=== PATIENT | male | born 1980 | race Two or more races ===

== ENCOUNTER 2017-03-23 00:41 | Emergency (ER) | payer MEDICAID ==
[~2017-03-23] VITALS: Ht 180.3 cm; Wt 115.0 kg
[2017-03-23 00:45] VITALS: BP 120/87
== END 2017-03-23 04:55 | disposition home or self-care (01) ==
LOC: ED 04:49
DX: F10.121 Alcohol abuse with intoxication delirium (principal); G93.41 Metabolic encephalopathy
CPT/HCPCS: 36415; 70450; 80307; G0479

== ENCOUNTER 2017-05-20 22:00 | Emergency (ER) | payer MEDICAID ==
[~2017-05-20] VITALS: Ht 180.3 cm; Wt 93.0 kg
[2017-05-20 22:21] VITALS: BP 134/93
== END 2017-05-21 01:13 | disposition home or self-care (01) ==
LOC: ED 23:59
DX: S54.22XA Injury of radial nerve at forearm level, left arm, initial encounter (principal); X58.XXXA Exposure to other specified factors, initial encounter; Y93.89 Activity, other specified; Y92.89 Other specified places as the place of occurrence of the external cause; Y99.8 Other external cause status
CPT/HCPCS: 93005; 99284

== ENCOUNTER 2017-07-19 06:20 | Emergency (ER) | payer MEDICAID ==
[~2017-07-19] VITALS: Ht 175.3 cm; Wt 80.0 kg
[2017-07-19] MEDS ORDERED: THIAMINE 100MG TABLET PO ONE (06:30)
[2017-07-19] MEDS ORDERED: THIAMINE 100MG TABLET ONE (06:39)
[2017-07-19 08:17] VITALS: BP 125/66
== END 2017-07-19 10:47 | disposition home or self-care (01) ==
LOC: ED 10:45
DX: F10.120 Alcohol abuse with intoxication, uncomplicated (principal); F17.200 Nicotine dependence, unspecified, uncomplicated; F15.10 Other stimulant abuse, uncomplicated; R41.82 Altered mental status, unspecified; R40.1 Stupor; Y90.9 Presence of alcohol in blood, level not specified
CPT/HCPCS: 99283

== ENCOUNTER 2018-07-19 18:40 | Emergency (ER) | payer MEDICAID ==
[~2018-07-19] VITALS: Ht 180.3 cm; Wt 90.0 kg
--- NOTE | 2018-07-19 18:49 | NUR ---
SEE TRIAGE. PT ANSWERS QUESTIONS, SLURRED SPEECH. PT WITH SUDDEN ANGRY OUTBURSTS/YELLING USING NAMES OF PEOPLE NOT IN ROOM. BED IN LOW POSITION, SR UP X 2, CALL LIGHT WITHIN REACH.
--- NOTE | 2018-07-19 19:23 | NUR ---
REPEAT VS REQUESTED BY PA
[2018-07-19] MEDS ORDERED: ZIPRASIDONE 20 MG INJ IM ONE ×3 (19:30→19:33)
--- NOTE | 2018-07-19 19:54 | NUR ---
REGLA GIVEN PER ERP ORDER. HR 130S, PT STATING HE'S GOING TO LEAVE. PA AND ERP NOTIFIED.
--- NOTE | 2018-07-19 20:40 | NUR ---
PT SLEEPING SOUNDLY. PULSE OX REPLACED AFTER GEODON GIVEN (PT HAD REMOVED TWICE). RA SAT 88%, BLOW BY OXYEN AT 5 LITERS PLACED BY MOUTH VIA NC WITH SAT IMPROVEMENT TO 94%. VS UPDATED IN COMPUTER.
[2018-07-19] MEDS ORDERED: SODIUM CHLORIDE FLUSH 10ML SYR IVF ONE (21:30)
[2018-07-19] MEDS ORDERED: SODIUM CHLORIDE 0.9% 1,000ML IVBOLUS ONE (21:30)
[2018-07-19] MEDS ORDERED: THIAMINE 100MG TABLET PO ONE (21:30)
[2018-07-19 21:42] LABS: BASOPHILS # (AUTO) 0.02 x10^3/uL (0-0.1); BASOPHILS % (AUTO) 0 % (0-1); EOSINOPHILS # (AUTO) 0.01 x10^3/uL (0-0.4); EOSINOPHILS % (AUTO) 0 % (1-7); LYMPHOCYTES # (AUTO) 1.13 x10^3/uL (1-3.4); LYMPHOCYTES % (AUTO) 13 % (22-44); MD NO; MEAN CORPUSCULAR HGB CONC 33.7 g/dL (33.2-36.2); MEAN CORPUSCULAR VOLUME 91.9 fL (81-97); MONOCYTES # (AUTO) 0.51 x10^3/uL (0.2-0.8); MONOCYTES % (AUTO) 6 % (2-9); NEUTROPHILS % (AUTO) 81 % (42-75); PLATELET COUNT 358 x10^3/uL (130-400); RED BLOOD COUNT 4.77 x10^6/uL (4.38-5.82); RED CELL DISTRIBUTION WIDTH 14.8 % (9.4-14.8)
[2018-07-19 21:53] LABS: ALANINE AMINOTRANSFERASE 30 U/L (12-78); ALBUMIN 3.3 g/dL (3.4-5.0); ANION GAP 12 mmol/L (5-15); CALCIUM 8.1 mg/dL (8.5-10.1); CHLORIDE 102 mmol/L (98-107); CREATININE 0.85 mg/dL (0.7-1.3)
[2018-07-19 21:56] LABS: ALKALINE PHOSPHATASE 91 U/L (45-117); BILIRUBIN,TOTAL 1.1 mg/dL (0.2-1.0); TOTAL PROTEIN 6.9 g/dL (6.4-8.2)
[2018-07-19 21:57] LABS: SALICYLATE LEVEL < 1.7 mg/dL (2.8-20.0)
[2018-07-19 21:58] LABS: ACETAMINOPHEN < 2 mcg/mL (10-30)
--- NOTE | 2018-07-19 22:17 | NUR ---
HR DECREASED TO 114, ERP NOTIFIED. HOLD ON IVF, PT NOW MTF. PT CONTINUES TO SLEEP DEEPLY, OCCASIONALLY REPOSITIONING IN BED.
--- NOTE | 2018-07-19 23:08 | NUR ---
REPORT TO JIM STEPHENS, TRANSFER OF CARE AT THIS TIME.
--- NOTE | 2018-07-20 02:37 | NUR ---
PT SLEEPING ON GUBRANDON ZENDEJAS AT THIS TIME.
--- NOTE | 2018-07-20 04:29 | NUR ---
PT D/C WITH D/C SUMMARY. PT DENIES ANY OTHER NEEDS PERTAINING TO THIS VISIT. PT VSS UPON D/C. PT PROVIDED WITH CRACKERS AND PEANUT BUTTER PER REQUEST. PT STATES HE IS GOING TO WALK HOME. PT AMBULATES TO REGISTRATION DESK WITH STEADY GAIT FOR D/C HOME.
[2018-07-20 04:30] VITALS: BP 121/70
== END 2018-07-20 04:34 | disposition home or self-care (01) ==
LOC: ED 19:06
DX: F10.229 Alcohol dependence with intoxication, unspecified (principal); F15.10 Other stimulant abuse, uncomplicated; F17.210 Nicotine dependence, cigarettes, uncomplicated
CPT/HCPCS: 36415; 80053; 80307; 80329; 85025; 96372; 99283; J3486; G0480

== ENCOUNTER 2019-02-09 10:57 | Emergency (ER) | payer MEDICAID ==
[~2019-02-09] VITALS: Ht 177.8 cm; Wt 82.0 kg
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
[2019-02-09] MEDS ORDERED: THIAMINE 100 MG/ML, 2ML ONE (11:14)
[2019-02-09] MEDS ORDERED: THIAMINE 100 MG/ML, 2ML IM ONE (11:30)
--- NOTE | 2019-02-09 12:06 | NUR ---
PATIENT RESTING IN BED
--- NOTE | 2019-02-09 13:15 | NUR ---
PATIENT RESTING IN BED.
--- NOTE | 2019-02-09 14:37 | NUR ---
PT IN BED AT THIS TIME. RESPS EVEN AND UNLABORED. EQUAL CHEST RISE AND FALL NOTED. CALL LIGHT IN REACH.
--- NOTE | 2019-02-09 16:50 | NUR ---
JAE GORE UPDATED ON PT STATUS
--- NOTE | 2019-02-09 18:12 | NUR ---
PATIENT RESTING IN BED
--- NOTE | 2019-02-09 18:45 | NUR ---
REPORT TO JORDAN STEPHENS
--- NOTE | 2019-02-09 18:55 | NUR ---
RECIEVED REPORT FROM FRANCES
[2019-02-09 18:57] VITALS: BP 129/82
--- NOTE | 2019-02-09 19:58 | NUR ---
PT ESCORTED BY SECURITY. DC'D HOME.
== END 2019-02-09 20:05 | disposition home or self-care (01) ==
LOC: ED 19:59
DX: F10.120 Alcohol abuse with intoxication, uncomplicated (principal); R41.82 Altered mental status, unspecified; Y90.9 Presence of alcohol in blood, level not specified
CPT/HCPCS: 96372; 99283; J3411

== ENCOUNTER 2019-05-21 14:52 | Emergency (ER) | payer MEDICAID ==
[~2019-05-21] VITALS: Ht 180.3 cm; Wt 104.0 kg
[2019-05-21 15:15] VITALS: BP 114/76
--- NOTE | 2019-05-21 16:01 | NUR ---
PT TO IMAGING, PER [employer]FI[employer] GAS TECHNICIAN HE WILL WALK PT TO ROOM 7 WHEN FINISHED. PT STEADY UPON AMBULATION. NO ACUTE DISTRESS NTOED.
--- NOTE | 2019-05-21 17:22 | NUR ---
At time of d/c, pt alert, oriented and ambulatory. NAD. Pt educated on fracture care, OTC meds and follow-up. Pt VU. Pt ambulated out of ER.
== END 2019-05-21 17:24 | disposition home or self-care (01) ==
LOC: ED 15:52
DX: S62.637A Displaced fracture of distal phalanx of left little finger, initial encounter for closed fracture (principal); W23.0XXA Caught, crushed, jammed, or pinched between moving objects, initial encounter; Y93.89 Activity, other specified; Y92.009 Unspecified place in unspecified non-institutional (private) residence as the place of occurrence of the external cause; Y99.8 Other external cause status
CPT/HCPCS: 29130; 99283

== ENCOUNTER 2019-12-03 20:57 | Emergency (ER) | payer MEDICAID ==
[~2019-12-03] VITALS: Ht 180.3 cm; Wt 100.0 kg
--- NOTE | 2019-12-03 21:12 | NUR ---
PT SHARDA MANCIA, [facility]. PT STATES HE WANTED TO CHECK INTO [facility] FOR ETOH DETOX BUT HE HAS A LT ANKLE INJURY WITH PAIN AND SWELLING. PT STATES [facility] HE MAY GO BACK AFTER ER MED CLEARENCE. PT AWATING ERMD ASSESSMENT.
--- NOTE | 2019-12-03 22:05 | NUR ---
PT D/C'D PER ORDERS/ TAXI VOUCHER GIVEN TO [facility]. SPLINT COMPLETED BY TECH. PT GIVEN CRUTCHES.
[2019-12-03 22:06] VITALS: BP 141/79
== END 2019-12-03 22:07 | disposition home or self-care (01) ==
LOC: ED 21:47
DX: S92.212A Displaced fracture of cuboid bone of left foot, initial encounter for closed fracture (principal); X58.XXXA Exposure to other specified factors, initial encounter; Y93.89 Activity, other specified; Y92.89 Other specified places as the place of occurrence of the external cause; Y99.8 Other external cause status
CPT/HCPCS: 29515; 99283

== ENCOUNTER 2020-02-13 22:39 | Emergency (ER) | payer MEDICAID ==
[~2020-02-13] VITALS: Ht 180.3 cm; Wt 100.0 kg
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
--- NOTE | 2020-02-13 23:38 | NUR ---
PT SLEEPING. RR EVEN NON LABORED. WILL CTM.
--- NOTE | 2020-02-14 02:27 | NUR ---
SLEEPING RR EQUAL AND UNLABORED. WILL CONTINUE TO MONITOR.
--- NOTE | 2020-02-14 02:33 | NUR ---
PLACED BACK ON CONT PULSE OX. PT WAKES UP WITH VERBAL COMM. SIDE RAILS UP, CALL LEMUS IN REACH, BED LOW.
--- NOTE | 2020-02-14 02:50 | NUR ---
Pt w periods of low sat, difficult to arouse. Attempt to place NPA pt pulled, placed o2 NC. Sats up, pt on left lateral side. Will continue to monitor.
--- NOTE | 2020-02-14 03:04 | NUR ---
REPORT TO ANGELO GODFREY
--- NOTE | 2020-02-14 04:35 | NUR ---
PT SLEEPING ON GURNEY, NO ACUTE DISTRESS NOTED.
--- NOTE | 2020-02-14 04:41 | NUR ---
Report received from ANGELO Strickland. This RN to assume care. Patient to be road tested.
[2020-02-14 04:48] VITALS: BP 105/66
--- NOTE | 2020-02-14 04:48 | NUR ---
Patient able to walk with a steady gait. AAOx4.
== END 2020-02-14 04:59 | disposition home or self-care (01) ==
LOC: ED 02-14 03:24
DX: F10.120 Alcohol abuse with intoxication, uncomplicated (principal); Y90.9 Presence of alcohol in blood, level not specified
CPT/HCPCS: 99283

== ENCOUNTER 2020-06-22 05:10 | Emergency (ER) | payer MEDICAID ==
[~2020-06-22] VITALS: Ht 180.3 cm; Wt 94.0 kg
--- NOTE | 2020-06-22 05:28 | NUR ---
I PUT THE PATIENTS BELONGINGS IN THE PSYCH LOCKER BIN 40. PATIENT IS ROOM 40.
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
[2020-06-22 06:06] LABS: BASOPHILS % (AUTO) 2 % (0-1); EOSINOPHILS % (AUTO) 0 % (1-7); LYMPHOCYTES % (AUTO) 28 % (22-44); MEAN CORPUSCULAR HEMOGLOBIN 29.8 pg (27.5-34.5); MEAN CORPUSCULAR HGB CONC 33.5 g/dL (33.2-36.2); MEAN PLATELET VOLUME 6.5 fL (7.4-10.4); MONOCYTES % (AUTO) 9 % (2-9); NEUTROPHILS % (AUTO) 61 % (42-75); PLATELET COUNT 415 x10^3/uL (130-400); RED BLOOD COUNT 5.28 x10^6/uL (4.38-5.82); RED CELL DISTRIBUTION WIDTH 16.7 % (9.4-14.8)
[2020-06-22 06:09] LABS: MD NO
[2020-06-22 06:18] LABS: ALANINE AMINOTRANSFERASE 38 U/L (12-78); ALBUMIN 3.3 g/dL (3.4-5.0); ANION GAP 5 mmol/L (5-15); CALCIUM 7.9 mg/dL (8.5-10.1); CHLORIDE 111 mmol/L (98-107); CREATININE 0.68 mg/dL (0.7-1.3)
[2020-06-22 06:21] LABS: ALKALINE PHOSPHATASE 86 U/L (45-117); BILIRUBIN,TOTAL 0.3 mg/dL (0.2-1.0); TOTAL PROTEIN 7.4 g/dL (6.4-8.2)
[2020-06-22 06:25] LABS: SALICYLATE LEVEL < 1.7 mg/dL (2.8-20.0)
--- NOTE | 2020-06-22 06:34 | NUR ---
PT RESTING ON [facility] [place] SITTER IN SIGHT, SAFETY MEASURES MAINTAINED.
--- NOTE | 2020-06-22 06:50 | NUR ---
REPORT FROM NOC ANGELO DELUCA. ASSUMING CARE. PT ASLEEP, RESPIRATIONS EVEN AND UNLABORED. SITTER AT BEDSIDE. BELONGINGS VERIFED TO BE IN LOCKER. GARAGE DOORS DOWN IN ROOM.
--- NOTE | 2020-06-22 09:08 | NUR ---
RECEIVED REPORT FROM CAMILO STEPHENS. PT BEING OBSERVED BY YUE.
--- NOTE | 2020-06-22 09:29 | NUR ---
LEE ANN COLLECTED AND WALKED TO THE LAB.
[2020-06-22 09:45] LABS: MICROSCOPIC NOT IND
[2020-06-22 09:52] LABS: AMPHETAMINE SCREEN, URINE Negative (Negative); BARBITURATE SCREEN, URINE Negative (Negative); BENZODIAZEPINE SCREEN, URINE Positive (Negative); CANNABINOID SCREEN, URINE Negative (Negative); COCAINE SCREEN, URINE Negative (Negative); METHADONE SCREEN, URINE Negative (Negative); OPIATE SCREEN, URINE Negative (Negative)
--- NOTE | 2020-06-22 10:26 | NUR ---
PT RESTING IN BED WITH VISIBLE RISE AND FALL OF CHEST OBSERVED. PT BEING OBSERVED BY SITTER.
--- NOTE | 2020-06-22 10:43 | NUR ---
BELONGINGS REMOVED FROM BIN FOR ROOM 40 IN SECURITY LOCKER AND PLACED IN ROOM 2 BIN.
--- NOTE | 2020-06-22 10:52 | NUR ---
TOOK REPORT FROM CHENCHO STEPHENS
[2020-06-22 11:23] VITALS: BP 110/75
--- NOTE | 2020-06-22 11:23 | NUR ---
REVIEWED DC INFORMATION WITH PT, TAXI VOUCHER PROVIDED.
== END 2020-06-22 11:26 | disposition home or self-care (01) ==
LOC: EDBD → MERGE 05:10 → ED 10:11
DX: F32.1 Major depressive disorder, single episode, moderate (principal); F17.210 Nicotine dependence, cigarettes, uncomplicated; Z72.9 Problem related to lifestyle, unspecified
CPT/HCPCS: 36415; 80053; 80299; 80307; 80320; 80329; 81003; 85025; 99284; G0480

== ENCOUNTER 2020-10-07 13:09 | Emergency (ER) | payer MEDICAID ==
[~2020-10-07] VITALS: Ht 177.8 cm; Wt 98.4 kg
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
[2020-10-07 13:30] LABS: BASOPHILS % (AUTO) 1 % (0-1); EOSINOPHILS % (AUTO) 1 % (1-7); LYMPHOCYTES % (AUTO) 30 % (22-44); MEAN CORPUSCULAR HGB CONC 34.4 g/dL (33.2-36.2); MEAN PLATELET VOLUME 6.4 fL (7.4-10.4); MONOCYTES % (AUTO) 5 % (2-9); NEUTROPHILS % (AUTO) 64 % (42-75); PLATELET COUNT 404 x10^3/uL (130-400); RED BLOOD COUNT 4.22 x10^6/uL (4.38-5.82)
[2020-10-07] MEDS ORDERED: SODIUM CHLORIDE 0.9% 1,000ML IVBOLUS ONE (13:30)
[2020-10-07] MEDS ORDERED: SODIUM CHLORIDE FLUSH 10ML SYR IVF ONE (13:30)
--- NOTE | 2020-10-07 13:30 | NUR ---
PT EXPRESSING SUICIDAL IDEATION STATING "I DON'T WANT TO LIVE ANYMORE, I WANT TO END IT ALL, I'M IN PAIN ALL OVER, I HAVE SO MANY MENTAL HEALTH PROBLEMS YOU CAN'T HELP ME". ERP UPDATED.
--- NOTE | 2020-10-07 13:31 | NUR ---
YUE REQUESTED FROM V BLOCK SAW OPERATOR.
--- NOTE | 2020-10-07 13:33 | NUR ---
PT PROVIDED W/ WATER, OK PER . URINAL AT BEDSIDE. EDUCATED ON NEED FOR SAMPLE.
[2020-10-07 13:51] LABS: ALANINE AMINOTRANSFERASE 40 U/L (12-78); ALBUMIN 2.8 g/dL (3.4-5.0); ALKALINE PHOSPHATASE 79 U/L (45-117); ANION GAP 8 mmol/L (5-15); BILIRUBIN,TOTAL 0.6 mg/dL (0.2-1.0); CALCIUM 7.3 mg/dL (8.5-10.1); CHLORIDE 113 mmol/L (98-107); CREATINE KINASE, TOTAL 842 U/L (39-308); CREATININE 0.58 mg/dL (0.7-1.3); TOTAL PROTEIN 6.3 g/dL (6.4-8.2)
--- NOTE | 2020-10-07 13:55 | NUR ---
PT REPORTS UNABLE TO PROVIDE URINE SAMPLE AT THIS TIME.
--- NOTE | 2020-10-07 14:08 | NUR ---
PT TRANSFERED TO 43, REPORT TO SANDRA STEPHENS, BELONGINGS TO SAFE KEEPING. SITTER OUTSIDE ROOM FOR SAFETY. PT SLEEPING, RESP EVEN AND UNLABORED, NADN.
--- NOTE | 2020-10-07 14:09 | NUR ---
BREAK RN: RECEIVED REPORT FROM STEFFANY STEPHENS. PT MOVED TO ROOM 43. PT RECEIVED 2L NS AND DRANK 1L PO WATER, PRIOR TO TRASFER. PT CONNECTED TO ALL MONITORING. PT IN DIRECT SIGHT OF SITTER. BELONGINGS PLACED IN ONE BAG AND STORED IN ED LOCKER. PT NOT IN SECURE ROOM AT THIS TIME D/T NEED FOR MONITORING, BUT ALL UNNEEDED EQUIPMENT REMOVED FROM ROOM. PT OXYGEN DROPS TO 88% RA FOR A SHORT TIME THEN BACK UP TO 93%. PT PLACED ON OXYGEN FOR SAFETY. URINAL AT BEDSIDE FOR URINE SAMPLE.
[2020-10-07 14:14] LABS: SALICYLATE LEVEL < 1.7 mg/dL (2.8-20.0)
--- NOTE | 2020-10-07 14:30 | NUR ---
REPORT RECEIVED FROM BREAK ANGELO FLORES, PT SLEEPING ON GURNEY, RESPS EVEN AND UNLABORED. BP AND SPO2 MONITORS IN PLACE. ROOM SECURE. SITTER MONITORING FROM [facility].
--- NOTE | 2020-10-07 15:54 | NUR ---
pt awakens to voice, then quickly falls back asleep. resps even and unlabored. pt urged to void when able, urinal at bedside. all monitors in place, sinus tach rate 90s with no ectopy. MD flores informed pt still has not provided urine sample, has not been incontinent. no further orders received from .
--- NOTE | 2020-10-07 17:00 | NUR ---
pt awakens to voice, oriented x 4 and able to answer questions appropriately. pt has no complaint. all monitors in place. sitter monitoring from hallway for safety. bed locked and in lowest position, gaurd rails up x 2.
--- NOTE | 2020-10-07 18:00 | NUR ---
pt able to provide urine sample, collected and sent to lab. pt resting in bed, a&o, resps even and unlabored, vss, joann.
[2020-10-07 18:21] LABS: AMPHETAMINE SCREEN, URINE Positive (Negative); BARBITURATE SCREEN, URINE Negative (Negative); BENZODIAZEPINE SCREEN, URINE Negative (Negative); CANNABINOID SCREEN, URINE Negative (Negative); COCAINE SCREEN, URINE Negative (Negative); METHADONE SCREEN, URINE Negative (Negative); OPIATE SCREEN, URINE Negative (Negative)
--- NOTE | 2020-10-07 19:00 | NUR ---
report given to reginald morales
--- NOTE | 2020-10-07 19:06 | NUR ---
Report from Angelo STEPHENS
--- NOTE | 2020-10-07 19:07 | NUR ---
Pt currently resting in bed connected to all monitors, even and symmetrical chest rise. [place]
--- NOTE | 2020-10-07 19:51 | NUR ---
pt continues to rest in bed with eyes closed, even and symmetrical chest rise, sitter in view of pt, NIKKIN
[2020-10-07 20:12] VITALS: BP 119/81
--- NOTE | 2020-10-07 20:54 | NUR ---
ERP Law at bedside to discuss POC with pt
--- NOTE | 2020-10-07 21:15 | NUR ---
pt ambulatory to restroom with steady gait
--- NOTE | 2020-10-07 21:17 | NUR ---
Pt provided water and meal tray and made aware of DC
--- NOTE | 2020-10-07 21:34 | NUR ---
pt provided all belongings, ice water and bus pass for safe DC. Pt able to dress self fully and ambulate with steady gait
== END 2020-10-07 21:47 | disposition home or self-care (01) ==
LOC: MERGE 13:09 → EDBD 13:09 → ED 13:39
DX: G31.2 Degeneration of nervous system due to alcohol (principal); E86.0 Dehydration; E86.1 Hypovolemia; R00.0 Tachycardia, unspecified
CPT/HCPCS: 36415; 80053; 80299; 80307; 80320; 82550; 85025; 93005; 96360; 99285; J7030; 80329; G0480

== ENCOUNTER 2020-10-19 18:06 | Emergency (ER) | payer MEDICAID ==
[~2020-10-19] VITALS: Ht 180.3 cm; Wt 105.0 kg
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
[2020-10-19] MEDS ORDERED: THIAMINE 100 MG/ML, 2ML IM ONE (18:30)
[2020-10-19] MEDS ORDERED: LIDOCAINE 2%, 20ML INFIL ONE (18:30)
[2020-10-19] MEDS ORDERED: DIPH,PERTUSS(ACELL),TET VAC/PF 0.5 ML IM-VACC ONE (18:30)
--- NOTE | 2020-10-19 18:36 | NUR ---
TASK RN: PT OUT OF UNIT FOR CT.
[2020-10-19 19:25] VITALS: BP 100/59
[2020-10-19] MEDS ORDERED: LIDOCAINE-MPF 1%, 5ML ONE (19:27)
[2020-10-19] MEDS ORDERED: THIAMINE 100 MG/ML, 2ML ONE (20:17)
--- NOTE | 2020-10-19 21:14 | NUR ---
PT AMBULATES STEADILY WO ASSISTANCE AND IS REQUESTING DC. SPEECH CLEAR. PT COOPERATAIVE. WOUNDS DRESSED BY TECH. ERP UPDATED TO PT READINESS FOR DC.
[2020-10-19] MEDS ORDERED: NEOSPORIN OINT. PKT 1 PACKET ONE (21:28)
[2020-10-19] MEDS ORDERED: BACITRACIN ZINC OINT 500U/GM, 0.9 GM ONE (21:28)
--- NOTE | 2020-10-19 23:16 | NUR ---
PT AMBULATORY W STEADY GAIT TO ND W [employer]. PT PROVIDED TAXI VOUCHER FOR SAFE TRANSPORT TO [facility]. PT HAS ALL BELONGINGS AND IS DRESSED APPROPRIATELY FOR THE WEATHER.
== END 2020-10-19 23:18 | disposition home or self-care (01) ==
LOC: ED 21:20
DX: S01.81XA Laceration without foreign body of other part of head, initial encounter (principal); F10.220 Alcohol dependence with intoxication, uncomplicated; R41.82 Altered mental status, unspecified; Z72.9 Problem related to lifestyle, unspecified; I10 Essential (primary) hypertension; F17.200 Nicotine dependence, unspecified, uncomplicated; Y90.0 Blood alcohol level of less than 20 mg/100 ml; Y08.89XA Assault by other specified means, initial encounter; Y93.89 Activity, other specified; Y92.89 Other specified places as the place of occurrence of the external cause; Y99.8 Other external cause status
CPT/HCPCS: 12011; 70450; 72125; 82962; 96372; 99285; J3411

== ENCOUNTER 2020-10-25 14:15 | Emergency (ER) | payer MEDICAID ==
[~2020-10-25] VITALS: Ht 180.3 cm; Wt 94.9 kg
--- NOTE | 2020-10-25 15:16 | NUR ---
"Im coming off alcohol" last drink today few cans beer reports feeling, anxious, loose stools WOULD ALSO LIKE SutureS removed to left eyebrow Not tachycardic, no tremors, steady gait. requested detox No covid vaccine
--- NOTE | 2020-10-25 16:22 | NUR ---
POC CLARIFIED WITH ER-PA.PLAN TO PROVIDE WITH FOOD/WATER-REMOVE SUTURES
--- NOTE | 2020-10-25 16:43 | NUR ---
SUTURES REMOVED WITHOUT DIFFICULTY. PROVIDED WITH FOOD/WATER
[2020-10-25 17:14] VITALS: BP 148/79
== END 2020-10-25 17:15 | disposition home or self-care (01) ==
LOC: ED 17:00
DX: F10.220 Alcohol dependence with intoxication, uncomplicated (principal); I10 Essential (primary) hypertension; Y90.0 Blood alcohol level of less than 20 mg/100 ml
CPT/HCPCS: 99281

== ENCOUNTER 2020-11-09 19:08 | Emergency (ER) | payer MEDICAID ==
[~2020-11-09] VITALS: Ht 180.3 cm; Wt 90.4 kg
[2020-11-09] MEDS ORDERED: RISPERIDONE 2 MG TABLET ONE (21:58)
[2020-11-09] MEDS ORDERED: RISPERIDONE 2 MG TABLET PO ONE (22:00)
--- NOTE | 2020-11-09 22:12 | NUR ---
DETOX AND PSYCH REFERALS GIVEN TO PT PRIOR TO D/C
[2020-11-09 22:13] VITALS: BP 161/99
== END 2020-11-09 22:16 | disposition home or self-care (01) ==
LOC: ED 21:55
DX: F15.120 Other stimulant abuse with intoxication, uncomplicated (principal); Z72.9 Problem related to lifestyle, unspecified; F17.210 Nicotine dependence, cigarettes, uncomplicated; I10 Essential (primary) hypertension
CPT/HCPCS: 99283; 99284; 99406